=== PATIENT | female | born 1965 | race Caucasian/White ===

== ENCOUNTER → 2021-04-18 | Outpatient (CLI) | payer OTHER ==
[~2021-04-18] VITALS: Ht 167.6 cm; Wt 90.7 kg
[~2021-04-18] MED LIST: ALL DAY ALLERGY10 M2 PO; ALLERGY25 MG PO; AMBIEN10 MG PO; COLACE 100MG C100 MG PO; DICLOFONO2.5 GM TOP; DIOVAN160 MG PO; HYDROCODON-ACE1 EAC6 PO; MIRALAX17 GM PO; NASACORT16.9 ML; OMEPRAZOLE40 MG PO; SINGULAIR10 MG PO; VENTOLIN HFA 66.7 GM INH; ZOFRAN ODT 4 MG4 MG PO; ZOFRAN ODT 4 MG4 MG SL
== END ==
LOC: ER1 15:41 → EDSTATUS 15:45 → EROP 16:00
DX: U07.1 COVID-19 (principal); Z23 Encounter for immunization; J45.909 Unspecified asthma, uncomplicated
CPT/HCPCS: 96365